=== PATIENT | male | born 1930 | race African-American/Black ===

== ENCOUNTER 2021-06-15 19:19 | Inpatient (IN) | payer MEDICARE ==
[~2021-06-15] VITALS: Ht 177.8 cm; Wt 85.7 kg
[2021-06-15 19:38] LABS: BASOPHILS % 0.3 % (0.0-1.0); EOSINOPHILS % 0.1 % (0.0-6.0); HEMOGLOBIN 8.6 g/dL (14.0-18.0); LYMPHOCYTES # (AUTO) 2.8 (1.0-3.2); LYMPHOCYTES % 23.3 % (18.0-39.1); MEAN CORPUSCULAR HEMOGLOBIN 24.2 pg (28-32); MEAN CORPUSCULAR HGB CONC 28.7 g/dL (31-35); MEAN CORPUSCULAR VOLUME 84.5 fL (81-99); MONOCYTES # (AUTO) 0.9 (0.2-0.8); MONOCYTES % 7.3 % (4.4-11.3); NEUTROPHILS # (AUTO) 8.3 (2.1-6.9); PLATELET COUNT 360 x10e3/uL (140-360); RED BLOOD COUNT 3.55 x10e6/uL (4.3-5.7); RED CELL DISTRIBUTION WIDTH 16.2 % (11.7-14.4)
[2021-06-15 19:57] LABS: ALBUMIN 2.7 g/dL (3.5-5.0); ALBUMIN/GLOBULIN RATIO 0.5 (0.8-2.0); ANION GAP 14.3 mmol/L (8-16); CALCIUM 9.5 mg/dL (8.4-10.2); CREATININE, SERUM 0.97 mg/dL (0.72-1.25); POTASSIUM 4.3 mmol/L (3.5-5.1)
[2021-06-15 23:31] LABS: CLARITY,URINE CLOUDY (CLEAR); COLOR,URINE YELLOW (YELLOW); KETONES,URINE NEGATIVE (NEGATIVE); LEUKOCYTE ESTERASE ,URINE 2+ (NEGATIVE); NITRITE,URINE NEGATIVE (NEGATIVE); PROTEIN,URINE DIPSTICK 2+ (NEGATIVE); URINE UROBILINOGEN 0.2 mg/dL (0.2 - 1)
[2021-06-15 23:45] LABS: BACTERIA,URINE MANY /HPF; EPITHELIAL CELLS,URINE FEW /LPF; RBC,URINE 21-50 /HPF (0-5); WBC,URINE (MAN) >50 /HPF (0-5); YEAST,URINE MANY
[2021-06-16] VITALS (9 sets, daily range): BP systolic 104–137; BP diastolic 57–67
[2021-06-16] MEDS ORDERED: SODIUM CHLORIDE 0.9% 1000ML 1,000 ML IV SCH (01:45)
[2021-06-16] MEDS ORDERED: CEFTRIAXONE 1 GM in SODIUM CHLORIDE 0.9% 50ML 50 ML IV ONE (01:45)
[2021-06-16] MEDS ORDERED: ACETAMINOPHEN 325 MG TAB PO ONE (03:00)
[2021-06-16] MEDS ORDERED: ONDANSETRON HCL INJ 2MG/ML 2ML 2 MG/ML VIAL IV PRN (08:45)
[2021-06-16] MEDS ORDERED: Vancomycin IV 1 GM in SODIUM CHLORIDE 0.9% 250ML 250 ML IV ONE (08:45)
[2021-06-16] MEDS: INSULIN LISPRO 100 UNIT/1 ML 3ML VIAL SQ SCH ×3 (09:39→21:35)
[2021-06-16] MEDS: PIPERACILLIN/TAZOBACTAM 3.375 GM in SODIUM CHLORIDE 0.9% 50ML 50 ML IV SCH ×2 (14:00→21:35)
[2021-06-16] MEDS ORDERED: PREDNISONE5 MG/5 ML PO (15:17)
[2021-06-16] MEDS ORDERED: JANUVIA50 MG PO (15:17)
[2021-06-16] MEDS ORDERED: ULTRAM50 MG PO (15:17)
[2021-06-16] MEDS ORDERED: CARDIZEM CD180 MG PO (15:17)
[2021-06-16] MEDS ORDERED: BUDESONIDE0.5 MG/2 M NEB (15:17)
[2021-06-16] MEDS ORDERED: CRESTOR10 MG PO (15:17)
[2021-06-16] MEDS ORDERED: CYMBALTA30 MG PO (15:17)
[2021-06-16] MEDS ORDERED: PROVENTIL HFA6.7 GM INH (15:17)
[2021-06-16] MEDS ORDERED: LEVALBUTER1.25 MG/3 INH (15:17)
[2021-06-16] MEDS ORDERED: AMIODARONE HCL100 MG PO (15:17)
[2021-06-16] MEDS ORDERED: MUPIROCIN22 GM TOP (15:17)
[2021-06-16] MEDS ORDERED: ACETYLCYST100 MG/1 M NEB (15:17)
[2021-06-16] MEDS ORDERED: LEVEMIR FL100 UNIT/1 SC (15:17)
[2021-06-16] MEDS ORDERED: LAC-HYDRIN FIV226 GM TOP (15:17)
[2021-06-16] MEDS ORDERED: BROVANA15 MCG/2 M NEB (15:17)
[2021-06-16] MEDS: ACETAMINOPHEN 325 MG TAB PO PRN (21:35)
[2021-06-16] MEDS: SIMVASTATIN 20 MG TAB PO SCH (21:35)
[2021-06-16] MEDS: BUDESONIDE 0.5MG/2 ML NEB NEB SCH (21:35)
[2021-06-16] MEDS: HEPARIN SOD (PORCINE) 5,000 UNIT/ML VIAL SC SCH (21:35)
[2021-06-17] VITALS (8 sets, daily range): BP systolic 98–130; BP diastolic 55–72
[2021-06-17 06:13] LABS: BASOPHILS % 0.4 % (0.0-1.0); EOSINOPHILS # (AUTO) 0.2 (0.0-0.4); EOSINOPHILS % 2.7 % (0.0-6.0); HEMATOCRIT 29.6 % (38.2-49.6); HEMOGLOBIN 8.6 g/dL (14.0-18.0); LYMPHOCYTES # (AUTO) 1.4 (1.0-3.2); LYMPHOCYTES % 17.9 % (18.0-39.1); MEAN CORPUSCULAR HEMOGLOBIN 24.2 pg (28-32); MEAN CORPUSCULAR HGB CONC 29.1 g/dL (31-35); MEAN CORPUSCULAR VOLUME 83.4 fL (81-99); MONOCYTES # (AUTO) 0.6 (0.2-0.8); MONOCYTES % 7.3 % (4.4-11.3); NEUTROPHILS # (AUTO) 5.3 (2.1-6.9); NEUTROPHILS % 70.8 % (38.7-80.0); PLATELET COUNT 347 x10e3/uL (140-360); RED BLOOD COUNT 3.55 x10e6/uL (4.3-5.7); RED CELL DISTRIBUTION WIDTH 16.2 % (11.7-14.4)
[2021-06-17] MEDS: PIPERACILLIN/TAZOBACTAM 3.375 GM in SODIUM CHLORIDE 0.9% 50ML 50 ML IV SCH ×2 (06:39→14:11)
[2021-06-17 06:47] LABS: ANION GAP 10.8 mmol/L (8-16); CALCIUM 8.2 mg/dL (8.4-10.2); CREATININE, SERUM 0.74 mg/dL (0.72-1.25); POTASSIUM 3.8 mmol/L (3.5-5.1)
[2021-06-17] MEDS ORDERED: DEXTROSE 50% SYRINGE 50 ML IV PRN (07:00)
[2021-06-17 07:16] LABS: % IRON SATURATION 5 % (15-50); IRON 12 ug/dL (65-175); TOTAL IRON BINDING CAPACITY 223 ug/dL (261-478); TRANSFERRIN 159 mg/dL (174-364)
[2021-06-17] MEDS: ALBUTEROL/IPRATROPIUM 3 ML NEB NEB PRN (07:20)
[2021-06-17] MEDS: BUDESONIDE 0.5MG/2 ML NEB NEB SCH ×3 (07:20→20:00)
[2021-06-17] MEDS: DULOXETINE HCL 30 MG DELAYED RELEASE PO SCH (09:15)
[2021-06-17] MEDS: AMIODARONE HCL 200 MG TAB PO SCH (09:15)
[2021-06-17] MEDS: COLLAGENASE OINTMENT 30 GM TUBE TP SCH (09:16)
[2021-06-17] MEDS: PREDNISONE 5 MG/5 ML SOLN PO SCH (09:33)
[2021-06-17] MEDS: INSULIN LISPRO 100 UNIT/1 ML 3ML VIAL SQ SCH ×4 (09:33→21:08)
[2021-06-17] MEDS: HEPARIN SOD (PORCINE) 5,000 UNIT/ML VIAL SC SCH ×2 (09:34→21:08)
[2021-06-17] MEDS: IRON SUCROSE 100 MG in SODIUM CHLORIDE 0.9% 100 ML 100 ML IV SCH (10:45)
[2021-06-17] MEDS ORDERED: ONDANSETRON HCL 4 MG ORAL DISINTEGRATING TAB SL PRN (15:45)
[2021-06-17] MEDS: CEFTRIAXONE 1 GM in SODIUM CHLORIDE 0.9% 50ML 50 ML IV SCH (19:45)
[2021-06-17] MEDS: AZITHROMYCIN 250 MG TAB PO SCH (21:07)
[2021-06-17] MEDS: SIMVASTATIN 20 MG TAB PO SCH (21:07)
[2021-06-18] VITALS (8 sets, daily range): BP systolic 94–114; BP diastolic 54–84
[2021-06-18 06:09] LABS: BASOPHILS % 0.5 % (0.0-1.0); EOSINOPHILS # (AUTO) 0.3 (0.0-0.4); EOSINOPHILS % 3.1 % (0.0-6.0); LYMPHOCYTES # (AUTO) 1.1 (1.0-3.2); LYMPHOCYTES % 14.1 % (18.0-39.1); MEAN CORPUSCULAR HEMOGLOBIN 24.3 pg (28-32); MEAN CORPUSCULAR HGB CONC 27.6 g/dL (31-35); MEAN CORPUSCULAR VOLUME 88.1 fL (81-99); MONOCYTES # (AUTO) 0.7 (0.2-0.8); MONOCYTES % 8.2 % (4.4-11.3); NEUTROPHILS # (AUTO) 5.9 (2.1-6.9); PLATELET COUNT 250 x10e3/uL (140-360); RED BLOOD COUNT 3.29 x10e6/uL (4.3-5.7); RED CELL DISTRIBUTION WIDTH 16.3 % (11.7-14.4)
[2021-06-18 06:41] LABS: ANION GAP 11.1 mmol/L (8-16); CALCIUM 8.6 mg/dL (8.4-10.2); CREATININE, SERUM 0.83 mg/dL (0.72-1.25); POTASSIUM 4.1 mmol/L (3.5-5.1)
[2021-06-18] MEDS: BUDESONIDE 0.5MG/2 ML NEB NEB SCH ×2 (06:41→20:00)
[2021-06-18] MEDS: ALBUTEROL/IPRATROPIUM 3 ML NEB NEB PRN (06:41)
[2021-06-18] MEDS: INSULIN LISPRO 100 UNIT/1 ML 3ML VIAL SQ SCH ×4 (07:30→20:35)
[2021-06-18] MEDS: HEPARIN SOD (PORCINE) 5,000 UNIT/ML VIAL SC SCH ×2 (09:00→21:06)
[2021-06-18] MEDS: DULOXETINE HCL 30 MG DELAYED RELEASE PO SCH (09:36)
[2021-06-18] MEDS: PREDNISONE 5 MG/5 ML SOLN PO SCH (09:36)
[2021-06-18] MEDS: AMIODARONE HCL 200 MG TAB PO SCH (09:36)
[2021-06-18] MEDS: COLLAGENASE OINTMENT 30 GM TUBE TP SCH (09:37)
[2021-06-18] MEDS: IRON SUCROSE 100 MG in SODIUM CHLORIDE 0.9% 100 ML 100 ML IV SCH (10:00)
[2021-06-18] MEDS ORDERED: CHOLESTYRAMINE 4 GM PACKET PO PRN (10:45)
[2021-06-18] MEDS: FLUCONAZOLE 100 MG TAB PO SCH (13:57)
[2021-06-18] MEDS: CEFTRIAXONE 1 GM in SODIUM CHLORIDE 0.9% 50ML 50 ML IV SCH (20:28)
[2021-06-18] MEDS: AZITHROMYCIN 250 MG TAB PO SCH (21:04)
[2021-06-18] MEDS: SIMVASTATIN 20 MG TAB PO SCH (21:04)
[2021-06-19] VITALS (8 sets, daily range): BP systolic 106–119; BP diastolic 45–62
[2021-06-19] MEDS ORDERED: SODIUM CHLORIDE 0.9% 250ML 250 ML ONE (04:58)
[2021-06-19] MEDS: BUDESONIDE 0.5MG/2 ML NEB NEB SCH ×2 (06:35→20:11)
[2021-06-19] MEDS: ALBUTEROL/IPRATROPIUM 3 ML NEB NEB PRN (06:35)
[2021-06-19] MEDS: INSULIN LISPRO 100 UNIT/1 ML 3ML VIAL SQ SCH ×4 (07:30→20:58)
[2021-06-19] MEDS: AMIODARONE HCL 200 MG TAB PO SCH (08:34)
[2021-06-19] MEDS: DULOXETINE HCL 30 MG DELAYED RELEASE PO SCH (08:34)
[2021-06-19] MEDS: FLUCONAZOLE 100 MG TAB PO SCH (08:35)
[2021-06-19] MEDS: HEPARIN SOD (PORCINE) 5,000 UNIT/ML VIAL SC SCH (08:51)
[2021-06-19] MEDS: COLLAGENASE OINTMENT 30 GM TUBE TP SCH (08:51)
[2021-06-19] MEDS: IRON SUCROSE 100 MG in SODIUM CHLORIDE 0.9% 100 ML 100 ML IV SCH (10:45)
[2021-06-19] MEDS: PREDNISONE 5 MG/5 ML SOLN PO SCH (12:20)
[2021-06-19] MEDS ORDERED: SODIUM CHLORIDE 0.9% 100 ML ONE ×2 (13:01→19:39)
[2021-06-19] MEDS ORDERED: IOPAMIDOL 370 MG/ML 200 ML INFUS..BTL INJ ONE ×2 (13:02→19:39)
[2021-06-19] MEDS: CEFTRIAXONE 1 GM in SODIUM CHLORIDE 0.9% 50ML 50 ML IV SCH (19:24)
[2021-06-19] MEDS: SIMVASTATIN 20 MG TAB PO SCH (20:57)
[2021-06-19] MEDS: AZITHROMYCIN 250 MG TAB PO SCH (20:57)
[2021-06-20] VITALS (7 sets, daily range): BP systolic 102–124; BP diastolic 42–74
[2021-06-20 05:05] LABS: BASOPHILS % 0.3 % (0.0-1.0); EOSINOPHILS # (AUTO) 0.2 (0.0-0.4); EOSINOPHILS % 2.5 % (0.0-6.0); HEMATOCRIT 24.7 % (38.2-49.6); HEMOGLOBIN 7.4 g/dL (14.0-18.0); LYMPHOCYTES # (AUTO) 1.6 (1.0-3.2); LYMPHOCYTES % 18.2 % (18.0-39.1); MEAN CORPUSCULAR HEMOGLOBIN 24.2 pg (28-32); MEAN CORPUSCULAR VOLUME 80.7 fL (81-99); MONOCYTES # (AUTO) 0.7 (0.2-0.8); MONOCYTES % 7.6 % (4.4-11.3); NEUTROPHILS # (AUTO) 6.2 (2.1-6.9); PLATELET COUNT 430 x10e3/uL (140-360); RED BLOOD COUNT 3.06 x10e6/uL (4.3-5.7); RED CELL DISTRIBUTION WIDTH 16.2 % (11.7-14.4)
[2021-06-20 05:26] LABS: ALBUMIN 1.9 g/dL (3.5-5.0); ALBUMIN/GLOBULIN RATIO 0.4 (0.8-2.0); ANION GAP 11.5 mmol/L (8-16); CREATININE, SERUM 0.74 mg/dL (0.72-1.25); POTASSIUM 3.5 mmol/L (3.5-5.1)
[2021-06-20 05:34] LABS: THYROID STIMULATING HORMONE 1.941 uIU/mL (0.350-4.940)
[2021-06-20] MEDS: BUDESONIDE 0.5MG/2 ML NEB NEB SCH (06:41)
[2021-06-20] MEDS: INSULIN LISPRO 100 UNIT/1 ML 3ML VIAL SQ SCH ×4 (07:30→21:00)
[2021-06-20] MEDS: PREDNISONE 5 MG/5 ML SOLN PO SCH (08:57)
[2021-06-20] MEDS: AMIODARONE HCL 200 MG TAB PO SCH (08:57)
[2021-06-20] MEDS: DULOXETINE HCL 30 MG DELAYED RELEASE PO SCH (08:57)
[2021-06-20] MEDS: FLUCONAZOLE 100 MG TAB PO SCH (08:57)
[2021-06-20] MEDS: COLLAGENASE OINTMENT 30 GM TUBE TP SCH (12:20)
[2021-06-20] MEDS: CEFTRIAXONE 1 GM in SODIUM CHLORIDE 0.9% 50ML 50 ML IV SCH (19:15)
[2021-06-20] MEDS: SIMVASTATIN 20 MG TAB PO SCH (21:00)
[2021-06-20] MEDS: TRAMADOL HCL 50 MG TAB PO PRN (21:00)
[2021-06-20] MEDS: AZITHROMYCIN 250 MG TAB PO SCH (21:00)
[2021-06-21] VITALS (7 sets, daily range): BP systolic 99–122; BP diastolic 51–63
[2021-06-21 06:14] LABS: BASOPHILS % 0.4 % (0.0-1.0); EOSINOPHILS # (AUTO) 0.3 (0.0-0.4); EOSINOPHILS % 3.7 % (0.0-6.0); HEMATOCRIT 26.5 % (38.2-49.6); HEMOGLOBIN 7.7 g/dL (14.0-18.0); LYMPHOCYTES # (AUTO) 1.6 (1.0-3.2); LYMPHOCYTES % 19.7 % (18.0-39.1); MEAN CORPUSCULAR HEMOGLOBIN 24.3 pg (28-32); MEAN CORPUSCULAR HGB CONC 29.1 g/dL (31-35); MEAN CORPUSCULAR VOLUME 83.6 fL (81-99); MONOCYTES # (AUTO) 0.7 (0.2-0.8); MONOCYTES % 8.2 % (4.4-11.3); NEUTROPHILS # (AUTO) 5.4 (2.1-6.9); NEUTROPHILS % 66.9 % (38.7-80.0); PLATELET COUNT 449 x10e3/uL (140-360); RED BLOOD COUNT 3.17 x10e6/uL (4.3-5.7); RED CELL DISTRIBUTION WIDTH 16.6 % (11.7-14.4)
[2021-06-21] MEDS: ALBUTEROL/IPRATROPIUM 3 ML NEB NEB SCH ×6 (07:20→23:18)
[2021-06-21] MEDS: BUDESONIDE 0.5MG/2 ML NEB NEB SCH ×2 (07:20→19:11)
[2021-06-21] MEDS: INSULIN LISPRO 100 UNIT/1 ML 3ML VIAL SQ SCH ×4 (07:30→21:00)
[2021-06-21] MEDS: DULOXETINE HCL 30 MG DELAYED RELEASE PO SCH (08:56)
[2021-06-21] MEDS: FLUCONAZOLE 100 MG TAB PO SCH (08:56)
[2021-06-21] MEDS: PREDNISONE 5 MG/5 ML SOLN PO SCH (08:56)
[2021-06-21] MEDS: COLLAGENASE OINTMENT 30 GM TUBE TP SCH (08:56)
[2021-06-21] MEDS: AMIODARONE HCL 200 MG TAB PO SCH (08:56)
[2021-06-21] MEDS: TRAMADOL HCL 50 MG TAB PO PRN (08:57)
[2021-06-21] MEDS: INSULIN GLARGINE 100 UNITS/ML VIAL SQ SCH (09:30)
[2021-06-21] MEDS: CEFTRIAXONE 1 GM in SODIUM CHLORIDE 0.9% 50ML 50 ML IV SCH (19:15)
[2021-06-21] MEDS: AZITHROMYCIN 250 MG TAB PO SCH (21:00)
[2021-06-21] MEDS: SIMVASTATIN 20 MG TAB PO SCH (21:00)
[2021-06-22] VITALS (8 sets, daily range): BP systolic 98–173; BP diastolic 53–81
[2021-06-22] MEDS: ALBUTEROL/IPRATROPIUM 3 ML NEB NEB SCH ×4 (07:12→22:28)
[2021-06-22] MEDS: BUDESONIDE 0.5MG/2 ML NEB NEB SCH ×2 (07:12→19:18)
[2021-06-22] MEDS: INSULIN LISPRO 100 UNIT/1 ML 3ML VIAL SQ SCH ×4 (07:30→22:51)
[2021-06-22] MEDS: TRAMADOL HCL 50 MG TAB PO PRN (08:27)
[2021-06-22] MEDS: FLUCONAZOLE 100 MG TAB PO SCH (08:27)
[2021-06-22] MEDS: AMIODARONE HCL 200 MG TAB PO SCH (08:27)
[2021-06-22] MEDS: DULOXETINE HCL 30 MG DELAYED RELEASE PO SCH (08:27)
[2021-06-22] MEDS: COLLAGENASE OINTMENT 30 GM TUBE TP SCH (08:28)
[2021-06-22] MEDS: PREDNISONE 5 MG/5 ML SOLN PO SCH (08:28)
[2021-06-22] MEDS: INSULIN GLARGINE 100 UNITS/ML VIAL SQ SCH (09:08)
[2021-06-22] MEDS: CEFTRIAXONE 1 GM in SODIUM CHLORIDE 0.9% 50ML 50 ML IV SCH (18:07)
[2021-06-22] MEDS: AZITHROMYCIN 250 MG TAB PO SCH (22:15)
[2021-06-22] MEDS: SIMVASTATIN 20 MG TAB PO SCH (22:15)
[2021-06-23] VITALS (8 sets, daily range): BP systolic 96–116; BP diastolic 54–66
[2021-06-23 05:51] LABS: BASOPHILS % 0.3 % (0.0-1.0); EOSINOPHILS # (AUTO) 0.3 (0.0-0.4); EOSINOPHILS % 3.3 % (0.0-6.0); HEMATOCRIT 26.5 % (38.2-49.6); HEMOGLOBIN 7.6 g/dL (14.0-18.0); LYMPHOCYTES % 20.6 % (18.0-39.1); MEAN CORPUSCULAR HEMOGLOBIN 24.2 pg (28-32); MEAN CORPUSCULAR HGB CONC 28.7 g/dL (31-35); MEAN CORPUSCULAR VOLUME 84.4 fL (81-99); MONOCYTES # (AUTO) 0.7 (0.2-0.8); MONOCYTES % 6.8 % (4.4-11.3); NEUTROPHILS # (AUTO) 6.6 (2.1-6.9); NEUTROPHILS % 68.2 % (38.7-80.0); PLATELET COUNT 442 x10e3/uL (140-360); RED BLOOD COUNT 3.14 x10e6/uL (4.3-5.7); RED CELL DISTRIBUTION WIDTH 17.2 % (11.7-14.4)
[2021-06-23 06:16] LABS: ANION GAP 9.7 mmol/L (8-16); CALCIUM 8.2 mg/dL (8.4-10.2); CREATININE, SERUM 0.69 mg/dL (0.72-1.25); POTASSIUM 3.7 mmol/L (3.5-5.1)
[2021-06-23] MEDS: BUDESONIDE 0.5MG/2 ML NEB NEB SCH ×2 (06:45→19:43)
[2021-06-23] MEDS: INSULIN LISPRO 100 UNIT/1 ML 3ML VIAL SQ SCH ×4 (07:30→20:46)
[2021-06-23] MEDS: PREDNISONE 5 MG/5 ML SOLN PO SCH (09:40)
[2021-06-23] MEDS: AMIODARONE HCL 200 MG TAB PO SCH (09:40)
[2021-06-23] MEDS: INSULIN GLARGINE 100 UNITS/ML VIAL SQ SCH (09:40)
[2021-06-23] MEDS: FLUCONAZOLE 100 MG TAB PO SCH (09:40)
[2021-06-23] MEDS: DULOXETINE HCL 30 MG DELAYED RELEASE PO SCH (09:40)
[2021-06-23] MEDS: TRAMADOL HCL 50 MG TAB PO PRN (09:40)
[2021-06-23] MEDS: ALBUTEROL/IPRATROPIUM 3 ML NEB NEB SCH ×3 (11:30→19:43)
[2021-06-23] MEDS: DILTIAZEM HCL 30 MG TAB PO SCH (15:00)
[2021-06-23] MEDS: ENOXAPARIN SOD INJ 40 MG/0.4 ML SYR SC SCH (17:00)
[2021-06-23] MEDS: COLLAGENASE OINTMENT 30 GM TUBE TP SCH (17:45)
[2021-06-23] MEDS: CEFTRIAXONE 1 GM in SODIUM CHLORIDE 0.9% 50ML 50 ML IV SCH (21:30)
[2021-06-23] MEDS: AZITHROMYCIN 250 MG TAB PO SCH (21:30)
[2021-06-23] MEDS: SIMVASTATIN 20 MG TAB PO SCH (21:30)
[2021-06-24] VITALS (8 sets, daily range): BP systolic 93–115; BP diastolic 53–89
[2021-06-24] MEDS: ALBUTEROL/IPRATROPIUM 3 ML NEB NEB SCH ×4 (06:40→18:29)
[2021-06-24] MEDS: INSULIN LISPRO 100 UNIT/1 ML 3ML VIAL SQ SCH ×5 (07:30→20:32)
[2021-06-24] MEDS: TRAMADOL HCL 50 MG TAB PO PRN (08:08)
[2021-06-24] MEDS: FLUCONAZOLE 100 MG TAB PO SCH (08:10)
[2021-06-24] MEDS: DILTIAZEM HCL 30 MG TAB PO SCH ×2 (08:10→17:00)
[2021-06-24] MEDS: AMIODARONE HCL 200 MG TAB PO SCH (08:10)
[2021-06-24] MEDS: DULOXETINE HCL 30 MG DELAYED RELEASE PO SCH (08:10)
[2021-06-24] MEDS: ACETAMINOPHEN 325 MG TAB PO PRN (10:12)
[2021-06-24] MEDS: BUDESONIDE 0.5MG/2 ML NEB NEB SCH ×2 (11:20→18:29)
[2021-06-24] MEDS: INSULIN GLARGINE 100 UNITS/ML VIAL SQ SCH (12:00)
[2021-06-24] MEDS: COLLAGENASE OINTMENT 30 GM TUBE TP SCH (14:15)
[2021-06-24] MEDS: ENOXAPARIN SOD INJ 40 MG/0.4 ML SYR SC SCH (17:00)
[2021-06-24] MEDS: CEFTRIAXONE 1 GM in SODIUM CHLORIDE 0.9% 50ML 50 ML IV SCH (20:32)
[2021-06-24] MEDS: SIMVASTATIN 20 MG TAB PO SCH (20:32)
[2021-06-24] MEDS: AZITHROMYCIN 250 MG TAB PO SCH (21:26)
[2021-06-25] VITALS (8 sets, daily range): BP systolic 100–115; BP diastolic 54–72
[2021-06-25] MEDS: ALBUTEROL/IPRATROPIUM 3 ML NEB NEB SCH ×4 (06:51→20:05)
[2021-06-25] MEDS: BUDESONIDE 0.5MG/2 ML NEB NEB SCH ×2 (06:51→20:05)
[2021-06-25] MEDS: INSULIN LISPRO 100 UNIT/1 ML 3ML VIAL SQ SCH ×4 (07:30→21:04)
[2021-06-25] MEDS: INSULIN GLARGINE 100 UNITS/ML VIAL SQ SCH (09:00)
[2021-06-25] MEDS: TRAMADOL HCL 50 MG TAB PO PRN ×2 (09:49→17:01)
[2021-06-25] MEDS: AMIODARONE HCL 200 MG TAB PO SCH (10:07)
[2021-06-25] MEDS: DULOXETINE HCL 30 MG DELAYED RELEASE PO SCH (10:07)
[2021-06-25] MEDS: FLUCONAZOLE 100 MG TAB PO SCH (10:07)
[2021-06-25] MEDS: DILTIAZEM HCL 30 MG TAB PO SCH ×2 (10:07→16:30)
[2021-06-25] MEDS: COLLAGENASE OINTMENT 30 GM TUBE TP SCH (10:24)
[2021-06-25] MEDS ORDERED: ENOXAPARIN 30 MG/0.3 ML SYR SC SCH (17:00)
[2021-06-25] MEDS: CEFTRIAXONE 1 GM in SODIUM CHLORIDE 0.9% 50ML 50 ML IV SCH (21:01)
[2021-06-25] MEDS: SIMVASTATIN 20 MG TAB PO SCH (21:04)
[2021-06-26 00:06] VITALS: BP 101/57
[2021-06-26 04:00] VITALS: BP 105/64
[2021-06-26] MEDS: ALBUTEROL/IPRATROPIUM 3 ML NEB NEB SCH (06:58)
[2021-06-26] MEDS: BUDESONIDE 0.5MG/2 ML NEB NEB SCH (06:58)
[2021-06-26 07:16] LABS: HEMATOCRIT 27.8 % (38.2-49.6)
[2021-06-26] MEDS: INSULIN LISPRO 100 UNIT/1 ML 3ML VIAL SQ SCH ×2 (07:30→11:57)
[2021-06-26 08:06] VITALS: BP 107/55
[2021-06-26 08:33] VITALS: BP 107/55
[2021-06-26] MEDS ORDERED: ALBUTEROL/IPRATROPIUM 3 ML NEB NEB PRN (09:15)
[2021-06-26] MEDS ORDERED: PREDNISONE 10 MG TAB PO SCH (09:45)
[2021-06-26] MEDS: DULOXETINE HCL 30 MG DELAYED RELEASE PO SCH (10:30)
[2021-06-26] MEDS: COLLAGENASE OINTMENT 30 GM TUBE TP SCH (10:30)
[2021-06-26] MEDS: AMIODARONE HCL 200 MG TAB PO SCH (10:30)
[2021-06-26] MEDS: TRAMADOL HCL 50 MG TAB PO PRN (10:40)
[2021-06-26 11:25] VITALS: BP 96/73
== END 2021-06-26 13:28 | DRG 871 ==
LOC: ER 19:30 → ERHOLD 06-16 01:50 → MED/SURG2 06-16 04:34 → OBSVTOIN 06-16 21:04
PROVIDERS: ADMIT Internal Medicine; ATTEND Internal Medicine
DX: A41.9 Sepsis, unspecified organism (principal); J18.9 Pneumonia, unspecified organism; J44.0 Chronic obstructive pulmonary disease with (acute) lower respiratory infection; B37.49 Other urogenital candidiasis; E11.52 Type 2 diabetes mellitus with diabetic peripheral angiopathy with gangrene; I96 Gangrene, not elsewhere classified; L97.418 Non-pressure chronic ulcer of right heel and midfoot with other specified severity; M86.8X6 Other osteomyelitis, lower leg; D50.9 Iron deficiency anemia, unspecified; Z79.899 Other long term (current) drug therapy; E11.621 Type 2 diabetes mellitus with foot ulcer; L97.522 Non-pressure chronic ulcer of other part of left foot with fat layer exposed; E11.40 Type 2 diabetes mellitus with diabetic neuropathy, unspecified; I89.0 Lymphedema, not elsewhere classified; Z20.822 Contact with and (suspected) exposure to COVID-19; E11.65 Type 2 diabetes mellitus with hyperglycemia; E11.69 Type 2 diabetes mellitus with other specified complication; Z91.19 Patient's noncompliance with other medical treatment and regimen; Z89.429 Acquired absence of other toe(s), unspecified side; Z85.46 Personal history of malignant neoplasm of prostate; Z87.891 Personal history of nicotine dependence
CPT/HCPCS: 36415; 71045; 71250; 73706; 80048; 80053; 80061; 81001; 82948; 83540; 83605; 83690; 84443; 84466; 84484; 85014; 85018; 85025; 87086; 93005; 93306; 93925; 94640; 94799; 97139; 99251; 99284; J0696; J1644; J1650; J1756; J1815; J2543; J7030; J7050; J7512; J7799; Q9967; U0002